=== PATIENT | male | born 1965 ===

== ENCOUNTER 2016-09-18 19:58 | Emergency (ER) | payer OTHER ==
[~2016-09-18] VITALS: Ht 170.2 cm; Wt 84.1 kg
[~2016-09-18 19:58] MED LIST: CYCL5TAB PO; DOCU-41 PO; IBUP800T28 PO
[2016-09-18 20:17] VITALS: BP 123/84; PULSE 98; RESP 20; O2SAT 96
--- NOTE | 2016-09-18 21:22 | DRSVH ---
PROCEDURE: X-RAY RIGHT CLAVICLE, COMPLETE ([id number]) INDICATIONS: inj TECHNIQUE: 2 views of the clavicle were acquired. COMPARISON: None. FINDINGS: Bones: AP and angle views of the right clavicle show a mid shaft oblique left clavicular fracture. Th e distal fragment is displaced inferiorly approximately one and a half times the shaft of the clavicl e. There some estimated overlapping of the approximately 1/2 cm. Soft tissues: No suspicious soft tissue calcifications. IMPRESSION: Midshaft clavicular fracture with displacement. Dictated by: Lucas Andino M.D. on 09/18/2016 at 21:19 Approved by: Lucas Andino M.D. on 09/18/2016 at 21:20
--- NOTE | 2016-09-18 21:23 | DRSVH ---
PROCEDURE: X-RAY RIGHT SHOULDER, MINIMUM TWO VIEWS ([id number]) INDICATIONS: inj TECHNIQUE: 3 views of the shoulder were acquired. COMPARISON: None. FINDINGS: Bones: There is a mid shaft clavicular fracture minimally comminuted and better seen on the clavicle films. No rib fracture or shoulder joint fracture is seen. No suspicious bony lesions. Visualized ri bs appear intact. Soft tissues: No suspicious soft tissue calcifications. IMPRESSION: No shoulder joint traumatic changes seen. A midshaft clavicular fracture best appreciated on clavicle films is present. Dictated by: Lucas Andino M.D. on 09/18/2016 at 21:20 Approved by: Lucas Andino M.D. on 09/18/2016 at 21:21
--- NOTE | 2016-09-18 21:42 | ED.REPORT ---
HPI-Trauma Minor / Fall Date of Service Sep 18, 2016 ED Provider: Evert Hyde MD Patient is a 50 year old male presenting to the ED due to a possible broken collarbone onset two days ago. The pt fell on his right side while attempting to move crab pots and felt immediate pain that has persisted since. He has been taking ibuprofen to treat the pain. Nursing Notes Stated Complaint: POSSIBLE BROKEN COLLAR BONE Chief Complaint: Extremity Trauma Nursing Notes Reviewed: Yes Allergies: Coded Allergies: No Known Allergies (Unverified , 09/18/16) Scheduled PRN Cyclobenzaprine (Cyclobenzaprine) 5 Mg Tablet 5 MG PO HS PRN PRN Spasm Docusate Sodium (Colace) 100 Mg Capsule 100 MG PO BID PRN PRN For Constipation Ibuprofen (Ibuprofen) 800 Mg Tablet 800 MG PO TID PRN PRN For Pain General Time Seen by MD: 21:37 Chief Complaint Other (collar bone injury) Hx Obtained From: Patient Arrived By: Walk-in Onset Occurred: 2 days ago Symptom Duration: Since onset Caused by: Slipped Context: Immunizations None up to date Recent Healthcare: No recent hospitalization, Recent doctor visit Similar Sx Previous: No Past Medical History Past Medical History psoriasis Past Surgical History None reported Smoking History Unknown if Ever Smoker Social History Alcohol Use: "Social" Other Social History: Good social support Ambulatory Status Independent Review of Systems Respiratory: Denies: Non-productive cough, Shortness of breath Musculoskeletal: Reports: Extremity pain (right collarbone), Denies: Back pain Skin: Denies Rash Complete sys rev & neg: except as marked. GI: Denies: Abdominal pain Physical Exam Initial Vital Signs Vital Signs (First) Date Time Temp Pulse Resp B/P Pulse Ox O2 Delivery O2 Flow Rate FiO2 09/18/16 20:17 37.1 98 20 123/84 96 Room Air Initial VS: Reviewed, Vital signs normal General/Constitutional: Awake, Alert, No acute distress Neck: Atraumatic, Supple, Full range of motion, Non-tender Head / Eyes: Atraumatic, Normocephalic, PERRL, EOMI ENT: Atraumatic, Airway patent, Mucous membranes moist Respiratory / Chest: Atraumatic, Breath sounds NL, Breath sounds = bilat, No respiratory distress Cardiovascular: Heart rate NL, Regular rhythm, Heart sounds NL Abdomen: Atraumatic, Soft, Non-tender Back: Atraumatic, Full range of motion Upper Extremity / MS: Neurologic intact (right arm), Vascular intact tenderness and swelling in the mid-shaft right clavicle no other physical exam findings of trauma Lower Extremity / Pelvis / MS: Atraumatic, Full range of motion Skin: Color NL, No rash, Warm, Dry Neurologic: Oriented X3, Speech NL, No motor deficits, No sensory deficits Psychiatric: Affect NL, Mood NL Interpretation & Diagnostics X-Ray Interpretation Xray Interpretation: IMPRESSION: No shoulder joint traumatic changes seen. A midshaft clavicular fracture best appreciated on clavicle films is present. Dictated by: Lucas Andino M.D. on 09/18/2016 at 21:20 Approved by: Lucas Andino M.D. on 09/18/2016 at 21:21 X-Ray Ordered: Shoulder right Interpretation / Wet Read by: Interpret - Radiologist Xray Interpretation: IMPRESSION: Midshaft clavicular fracture with displacement. Dictated by: Lucas Andino M.D. on 09/18/2016 at 21:19 Approved by: Lucas Andino M.D. 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 It is displaced and overriding. There is no evidence of associated trauma. He was placed in a sling and given Vicodin prepack. Referred to orthopedics for ORIF. Source of Hx: Old records Re-Evaluation/Progress : Time of Eval: 21:37 Re-Evaluation/Progress Note: Pt informed of the diagnosis and plan for discharge during the initial interview. The pt understands and agrees with the plan. All questions are addressed at this time. Counseled Regarding: Diagnosis, Lab results, Need for follow-up, When/why to return to ED Discharge & Departure Impression: Primary Impression: Right clavicle fracture Encounter type: initial encounter Clavicle location: shaft Fracture type: closed Fracture alignment: displaced Qualified Code: S42.021A - Displaced fracture of shaft of right clavicle, initial encounter for closed fracture Disposition: Home Discharge Condition All VS Reviewed: Yes Condition: Stable Patient Instructions: Clavicle Fracture (ED) Additional Instructions: You have a displaced fracture of the right clavicle. Acetaminophen and/or ibuprofen as needed for pain. Hydrocodone/acetaminophen 5/325, one or 2 tablets every 4-6 hours as needed for severe pain, #10 dispensed. Do not use this medication if you are going to drive or if you are on the boat. Contact [facility] for evaluation for surgical repair of this. Referrals: [facility] (PCP) Rell Stewart MD (Family) Rell Gunter Attestation Portions of this note were transcribed by Tata Wright & Shannen Fontenot. I, Dr. Hyde personally performed the history, physical exam and medical decision-making; I reviewed and confirmed the accuracy of the information in the transcribed note. Signed by: Joanne Mackenzie, 09/18/2016 and [id number]. copies to: [facility]; Rell Stewart MD; Rell Gunter Howard L MD Sep 18, 2016 21:41 Tata Wright Sep 18, 2016 21:53 SHANNEN FONTENOT Sep 18, 2016 22:45
[2016-09-18] MEDS ORDERED: _HYDROcodone/APAP 5-325 mg Tablet PO PRN (21:55)
[2016-09-18 22:15] VITALS: BP 126/81; PULSE 91; RESP 18; O2SAT 96
[2016-09-22] MEDS ORDERED: IBUP800T28 PO (10:14)
[2016-09-22] MEDS ORDERED: psoriasis cream TOPICAL (10:14)
== END 2016-09-18 22:31 | disposition home or self-care (01) ==
LOC: SED 19:58
DX: S42.021A Displaced fracture of shaft of right clavicle, initial encounter for closed fracture (principal); W01.0XXA Fall on same level from slipping, tripping and stumbling without subsequent striking against object, initial encounter; Y93.89 Activity, other specified; Y92.9 Unspecified place or not applicable; Y99.8 Other external cause status

== ENCOUNTER 2016-09-23 08:46 | Day surgery (SDC) | payer OTHER ==
[2016-09-23] VITALS (9 sets, daily range): BP systolic 123–143; BP diastolic 81–90; PULSE 66–99; RESP 14–19; O2SAT 94–97
[~2016-09-23] VITALS: Ht 170.2 cm; Wt 82.4 kg
--- NOTE | 2016-09-23 06:53 | PCM.HPANE ---
Patient Data Surgeon Admitting Provider: Attending Provider:Willem Kendall DO [facility] Other Provider:Iesha Washburn Anesthesia Reason for Visit Right Clavical Shaft Fracture Ht/WT & BMI Height (Feet): 5 Height (Inches): 7 Weight (Kilograms): 87.64 Body Mass Index 30.00 Allergies Coded Allergies: No Known Allergies (Unverified , 09/18/16) Past Anesthesia History Anesthesia History: Denies:: Abnormal Airway, Anesthesia Reactions, Difficult Intubation, Fam Anesthesia Reaction, Fam Malignant Hypertherm, Malignant Hyperthermia Diabetes History Hx Diabetes?: No MRSA MRSA: No Medications Hypertension Medication: No Home Meds Incl Beta Tasia: No Reported Medications [psoriasis cream] No Conflict CheckUnknown Dose TOPICAL PRN skin condition 09/22/16 Ibuprofen 800 Mg [id number] Mg PO TID PRN For Pain Ref 0 09/22/16 Discontinued Scripts Docusate Sodium (Colace)100 Mg [id number] Mg PO BID PRN For Constipation #20 CAPSULE Ref 0 Prov:Atson Grant MD 03/10/16 Ibuprofen 800 Mg [id number] Mg PO TID PRN For Pain #30 TABLET Prov:Aston Grant MD 03/10/16 Cyclobenzaprine 5 Mg Tablet5 Mg PO HS PRN Spasm #10 TABLET Prov:Aston Grant MD 03/10/16 History History of ENT Problems?: No HEENT History: Denies:: Abnormal Airway Cataracts Difficult Intubation Dysphagia Glaucoma Hearing Problem Sinus Problem TMJ Denture Type: None Teeth Condition: Within Normal Limits Hx of Heart Problems?: No Cardiovascular History: Denies:: AICD Abdominal Aortic Aneurism Atrial Fibrillation Cardiac Surgery Chest Pain Congestive Heart Failure Coronary Artery Disease Edema Heart Murmur Hypertension Irregular Heartbeat Pacemaker Peripheral Vascular Rheumatic Fever Thrombophlebitis Valvular Heart Disease Hx of Respiratory Problem?: No Respiratory History: Denies:: Asthma COPD Emphysema Oxygen Administration Pneumonia Tuberculosis Use of C-PAP Machine Use of Inhalers / NEBS Hx Neurologic Problems?: No Neurological History: Denies:: Alzheimer's Disease CVA Headaches Multiple Sclerosis Parkinson's Disease Seizures TIA Hx of GI Problems?: No Hx of Problems?: No Genitourinary History: Denies:: Kidney Stones Urinary Tract Infection Male Hx: Denies:: Prostate Problems Scrotal Mass Testicular Surgery Skin History: Positive for:: History Skin Disorders? (psoriasis- using topical cream- gagnon) Hx Musculoskeletal Problems?: Yes Musculoskeletal History: Positive for:: Back Injury (hx of back pain, spasm) Musculoskeletal Trauma (right clavicle fx current admission problem) Osteoarthritis (pt suspicious) Denies:: Fibromyalgia Joint Replacement Myasthenia Gravis Systemic Lupus Hx of Psycho/Social Problems?: No Psycho Social History: Denies:: Anxiety Hx Depression Hx Surgeries?: Yes (tonsils as child) Hx Any Other Health Problems?: Yes Other History: Denies:: Cancer Thyroid Disease History Blood Transfusions: Positive for:: Accept Blood Products? Denies:: Blood Transfusions Hx Diabetes: No Hx Alcohol Use: YesAlcoholic Drinks Per Day: drinks weekend- 2-3 drinks or moreHx Substance Use: No Smoking Status: Unknown if Ever Smoker Have You Smoked inLast 12 mo: YesApprox How Many Cigarettes/day: smokes on weekends when he drinks Stop/Bang S-Snoring: Do You Snore Loudly: No T-Tired: feel tired, fatigued: No O-Obsered: Observed not breath: No P-Blood Pressure: treated: No B- Body Mass Index > 35 kg/m2: No A- Age over 50: No N- Neck Large Circumference: No G- Gender Male: Yes MO Total Score: 1 Risk Assessment Category Category 1A: Patient has history of documented sleep apnea, and HAS NOT received any narcotic, sedative or anesthesia administration during this stay. Category 1B: Patient has history of documented sleep apnea, and HAS received any narcotic , sedative or anesthesia administration during this stay Category 2: Patient has SUSPECTED Obstructive Sleep Apnea, and HAS received any narcotic , sedative or anesthesia administration during this stay. Category 3: Patient has SUSPECTED Obstructive Sleep Apnea and HAS NOT received narcotic, sedative or anesthesia administration during this stay. Category 4: Outpatient in Procedural Areas with known sleep apnea or who screen positive for High Risk via the STOP/BANG questionnaire. Exam Exam General Appearance: Alert, Oriented X3, Cooperative, No Acute Distress HEENT/AIRWAY: MP 2, Neck Movement (from), Mouth Opening (wnl) Lungs: Clear to Auscultation Heart: Exam Unremarkable Plan Impression Patient chart reviewed, patient interviewed and anesthestic plan with risks, benefits, and alternatives discussed, and informed consent obtained. ASA Physical Status: ASA2 Mod Systemic Disease Anesthetic Plan: GA Bene/Risks/Altern/Consents: Yes HP Complete Prior to Induction: Yes Finesse Mark MD Sep 23, 2016 06:53
[~2016-09-23 08:46] MED LIST changes: -CYCL5TAB PO; +CeFAZolin Inj 2 GM in IV Premix 1 EACH IV ONE; -DOCU-41 PO; +psoriasis cream TOPICAL
[2016-09-23] MEDS ORDERED: HYDROmorphone 1 mg/mL Inj ONE (08:47)
[2016-09-23] MEDS ORDERED: fentaNYL-PF 50 mCg/mL 2 mL Inj ONE (08:47)
[2016-09-23] MEDS ORDERED: Ondansetron 2 mg/mL 2 mL Inj ONE (08:47)
[2016-09-23] MEDS ORDERED: Propofol 10 mg/mL 20 mL Inj ONE (08:47)
[2016-09-23] MEDS ORDERED: Succinylcholine Chloride 20 mg/mL 5 mL Inj ONE (08:47)
[2016-09-23] MEDS: Lactated Ringer's 1,000 ML IV SCH ×2 (09:24→11:16)
[2016-09-23] MEDS ORDERED: oxyCODONE-Acetamin 5-325 mg Tablet PO PRN (11:00)
[2016-09-23] MEDS ORDERED: Lidocaine 1%-Epi 1:100,000 20 mL Inj INJ ONE (11:50)
[2016-09-23] MEDS ORDERED: Lactated Ringer's 500 ML IV PRN (11:58)
[2016-09-23] MEDS ORDERED: Lactated Ringer's 1,000 ML IV SCH (11:58)
[2016-09-23] MEDS ORDERED: Dexamethasone 4 mg/mL Inj IVPUSH PRN (12:00)
[2016-09-23] MEDS ORDERED: hydrALAZINE 20 mg/mL Inj IVPUSH PRN (12:00)
[2016-09-23] MEDS ORDERED: Ondansetron 2 mg/mL 2 mL Inj IVPUSH PRN (12:00)
[2016-09-23] MEDS ORDERED: Atropine 0.4 mg/mL Inj IVPUSH PRN (12:00)
[2016-09-23] MEDS ORDERED: Phenylephrine 10,000 mCg/mL Inj IVPUSH PRN (12:00)
[2016-09-23] MEDS ORDERED: Labetalol 5 mg/mL 4 mL Inj IV PRN (12:00)
[2016-09-23] MEDS ORDERED: EPHEDrine Sulfate 50 mg/mL Inj IVPUSH PRN (12:00)
[2016-09-23] MEDS ORDERED: fentaNYL-PF 50 mCg/mL 2 mL Inj IVPUSH PRN (12:00)
[2016-09-23] MEDS ORDERED: HYDROmorphone 1 mg/mL Inj IVPUSH PRN (12:00)
--- NOTE | 2016-09-23 13:43 | PCM.ANEP1 ---
Post Anesthesia PACU Phase 1 Assessment Vital Signs Vital Signs Date Time Temp Pulse Resp B/P Pulse Ox O2 Delivery O2 Flow Rate FiO2 09/23/16 13:30 36.8 80 18 136/81 97 Room Air 09/23/16 13:25 86 19 133/88 94 Room Air 09/23/16 13:20 88 19 134/89 94 Room Air 09/23/16 13:15 92 17 138/82 96 Room Air 09/23/16 13:10 95 17 143/82 96 Room Air 09/23/16 13:08 36.9 99 14 134/82 96 Room Air 09/23/16 09:17 36.0 69 16 123/83 97 Room Air Anesthetic Administered: GA Level of Alertness: Awake, talking WILL's with Equal Strength: Yes Pain: Yes Nausea or Vomiting: No CV Function & Hydration Stable: Yes Airway Device: Oxygen Delivery: Room Air Lungs: Normal Air Movement PACU Phase 2 Assessment Complications: No Follow up Care: No Patient Instructions Provided: N/A Finesse Mark MD Sep 23, 2016 13:43
--- NOTE | 2016-09-24 09:10 | OP ---
[address] [address] OPERATIVE REPORT PATIENT: TYLER CRAWFORD : 1965 MR#: [id number] ADMIT: 09/23/2016 JOB ID: [id number] DATE OF SURGERY: 09/23/2016 PREOPERATIVE DIAGNOSIS(ES): Right mid to distal clavicle shaft fracture. POSTOPERATIVE DIAGNOSIS(ES): Right mid to distal clavicle shaft fracture. PROCEDURE: Open reduction, internal fixation of right clavicle shaft fracture. SURGEON: Willem Kendall D.O. TOOLING INSPECTOR: William Fisher PA-C. The assistance of William Fisher PA-C, was necessary for help with retraction and manipulation of the fracture. BRIEF HISTORY: The patient is a 50-year-old male who tripped and landed directly onto his right side. He sustained a displaced long oblique mid to distal clavicle shaft fracture with displacement. I discussed with the patient and significant other the risks, benefits, alternatives and indications to proceed either with continued conservative treatment versus surgery for open reduction internal fixation. He understood the risks include, but not limited to, neurovascular injury, tendon injury, infection, failure of fixation, stiffness, persistent pain, all which may require further intervention. The patient had all his questions answered. Consent was signed and placed in the chart. PROCEDURE IN DETAIL: The patient was brought to the operative suite and placed supine on the operating table. Surgical time-out was performed. Everyone in the room was in agreement. After appropriate anesthesia was obtained, the patient was placed into a modified beach chair position. All prominences were well padded and the right upper extremity was prepped and draped in a sterile fashion. A curvilinear incision was then made overlying the superior aspect of the mid to distal clavicle. Dissection was carried down through the fascia. Electrocautery was used to maintain hemostasis throughout the procedure. Any branches of the supraclavicular nerves were well protected and identified. The fracture was identified after elevating the periosteum off of the fracture site. Manual reduction was then performed, followed by application of two 2.7 mm lag screws from anterior to posterior direction. Excellent fixation was achieved. This was followed by application of a Synthes superior lateral 7 hole plate. The plate was held provisionally with clamps and position verified under fluoroscopy. Next nonlocking screws were placed, proximal and distal to the fracture site to pull the plate to the superior cortex of the clavicle. Remaining fixation was achieved utilizing locking screws distally and nonlocking screws proximally at the medial aspect of the clavicle. Multiple views on fluoroscopy were then utilized to verify anatomic reduction, appropriate placement of the plate and hardware. Copious irrigation was performed followed by closure of the underlying fascia with 0-Vicryl, 0-Vicryl for the subcutaneous tissues and a running V-Loc. This was further reinforced with Steri-Strips. Bulky dressing was applied and the patient placed back into a sling. ESTIMATED BLOOD LOSS: Less than 25 cc. COMPLICATIONS: None. DISPOSITION: The patient tolerated the procedure well. Anesthesia was reversed and the patient was transferred back to recovery. IMPLANTS: A Synthes 7 hole superior lateral plate with a combination of locking and nonlocking screws. POSTOPERATIVE PLAN: The patient will follow up in office in two weeks. I will have him start working on some gentle elbow range of motion exercises at that time, but he will need to maintain in that sling for four weeks additionally prior to discontinuing its use and initiating shoulder range of motion.
== END 2016-09-23 23:59 | disposition home or self-care (01) ==
LOC: SAS 08:46
PROVIDERS: ATTEND Orthopaedic Surgery
DX: S42.021A Displaced fracture of shaft of right clavicle, initial encounter for closed fracture (principal); L40.9 Psoriasis, unspecified; F17.210 Nicotine dependence, cigarettes, uncomplicated; W01.0XXA Fall on same level from slipping, tripping and stumbling without subsequent striking against object, initial encounter; Y93.9 Activity, unspecified; Y92.9 Unspecified place or not applicable; Y99.8 Other external cause status
CPT/HCPCS: 23515; 76001; C1713; J0330; J0690; J1170; J2250; J2405; J3010; J7120